=== PATIENT | male | born 1985 | race Caucasian/White ===

== ENCOUNTER 2016-05-27 05:31 | Day surgery (SDC) | payer OTHER ==
[2016-05-20 09:38] LABS: HEMATOCRIT 46.3 % (37.9-51.0); HEMOGLOBIN 15.4 g/dL (13.5-17.0); HGB HCT DIFFERENCE -0.1; MEAN CORPUSCULAR HGB CONC 33.3 g/dL (32.0-36.0); MEAN CORPUSCULAR VOLUME 93 fl (80-97); RED BLOOD COUNT 4.98 10^6/uL (4.35-5.55); RED CELL DISTRIBUTION WIDTH 13.1 % (11.5-14.0); WHITE BLOOD COUNT 7.8 10^3/uL (4.0-10.5)
[2016-05-20 09:40] LABS: APPEARANCE,URINE CLEAR; BILIRUBIN,URINE NEGATIVE (NEGATIVE); GLUCOSE, URINE NEGATIVE (NEGATIVE); KETONES,URINE NEGATIVE (NEGATIVE); LEUKOCYTE ESTERASE,URINE NEGATIVE (NEGATIVE); NITRITE,URINE NEGATIVE (NEGATIVE); PROTEIN,URINE NEGATIVE (NEGATIVE); URINE SPECIFIC GRAVITY 1.017; UROBILINOGEN,URINE NEGATIVE mg/dL (<2.0)
[2016-05-20 09:59] LABS: ALANINE AMINOTRANSFERASE 35 U/L (21-72); ALKALINE PHOSPHATASE 50 U/L (38-126); ANION GAP 14 (5-19); ASPARTATE AMINO TRANSFERASE 21 U/L (17-59); BILIRUBIN,TOTAL 0.8 mg/dL (0.2-1.3); BLOOD UREA NITROGEN 22 mg/dL (7-20); CALCIUM 10.7 mg/dL (8.4-10.2); CARBON DIOXIDE 26 mmol/L (22-30); CHLORIDE 103 mmol/L (98-107); GLUCOSE 73 mg/dL (75-110); POTASSIUM 4.8 mmol/L (3.6-5.0); SODIUM 142.9 mmol/L (137-145); TOTAL PROTEIN 7.5 g/dL (6.3-8.2)
[2016-05-20 13:45] LABS: MAGNESIUM 1.8 mg/dL (1.6-2.3); PHOSPHORUS 3.8 mg/dL (2.5-4.5)
[~2016-05-27 05:31] MED LIST: CEFAZOLIN 2 GM/D5W RTU 2 GM/50 ML RTUPB IV ONE
[2016-05-27] MEDS ORDERED: METHYLENE BLUE INJ/PF 10 MG/1 ML SDV ONE (06:31)
[2016-05-27] MEDS ORDERED: LIDOCAINE 1% INJ-PF (10 MG/ML) 30 ML SDV ONE (06:31)
[2016-05-27] MEDS ORDERED: BUPIVACAINE HCL 0.25% /EPINEPHRINE INJ/PF 30 ML SDV ONE (06:31)
[2016-05-27] MEDS ORDERED: MORPHINE SULFATE 10 MG/ML INJ ONE ×2 (07:08→07:10)
[2016-05-27] MEDS ORDERED: MIDAZOLAM 2 MG/2 ML INJ ONE (07:08)
[2016-05-27] MEDS ORDERED: FENTANYL CITRATE INJ/PF 250 MCG/5 ML AMPULE ONE (07:08)
[2016-05-27] MEDS ORDERED: PROPOFOL INJ 200 MG/20 ML VIAL IV ONE (07:09)
[2016-05-27] MEDS ORDERED: DEXMEDETOMIDINE INJ 80 MCG/20 ML VIAL IV ONE (07:09)
[2016-05-27] MEDS ORDERED: ACETAMINOPHEN 100 ML IV ONE (07:09)
[2016-05-27] MEDS ORDERED: MORPHINE SULFATE 10 MG/ML INJ IV PRN ×3 (08:11→14:02)
[2016-05-27] MEDS ORDERED: FENTANYL CITRATE INJ/PF 100 MCG/2 ML AMPUL IV PRN ×6 (08:11→14:02)
[2016-05-27] MEDS ORDERED: PROMETHAZINE HCL INJ 25 MG/1 ML VIAL IV PRN ×4 (08:11→14:02)
[2016-05-27] MEDS ORDERED: MEPERIDINE HCL/PF INJ 25 MG/1 ML DISP.SYRIN IV PRN ×2 (08:11→14:02)
[2016-05-27] MEDS ORDERED: DIPHENHYDRAMINE HCL 50 MG/ML VIAL IV PRN ×2 (08:11→14:02)
[2016-05-27] MEDS ORDERED: OXYCODONE-ACETAMINOPHEN 5-325 MG TABLET PO PRN ×6 (08:11→14:02)
[2016-05-27] MEDS ORDERED: ROCURONIUM BROMIDE INJ 50 MG/5 ML VIAL IV ONE (09:45)
[2016-05-27] MEDS ORDERED: LIDOCAINE 2% INJ-PF (20 MG/ML) 10 ML AMPUL ONE (09:45)
[2016-05-27] MEDS ORDERED: DEXAMETHASONE SOD PHOSPHATE INJ 4 MG/1 ML VIAL ONE (09:45)
[2016-05-27] MEDS ORDERED: SUCCINYLCHOLINE CHLORIDE INJ 200 MG/10 ML VIAL ONE (09:45)
[2016-05-27] MEDS ORDERED: ONDANSETRON HCL INJ/PF 4 MG/2 ML SDV ONE ×2 (09:45→13:27)
[2016-05-27] MEDS ORDERED: GLYCOPYRROLATE INJ 0.4 MG/2 ML VIAL ONE (09:45)
[2016-05-27] MEDS ORDERED: NEOSTIGMINE METHYLSULFATE 10 MG/10 ML VIAL ONE (09:45)
[2016-05-27] MEDS ORDERED: MINERAL OIL (STERILE) 10 ML VIAL ONE (10:52)
--- NOTE | 2016-05-27 12:35 | Brief Operative Note ---
BRIEF OPERATIVE REPORT DATE OF SURGERY: 05/27/16 TIME OF SURGERY: 07:30 PREOPERATIVE DIAGNOSIS: right UPJ obstruction POSTOPERATIVE DIAGNOSIS: right upj obstruction SURGEON: VASYL ANDREWS 1ST NITRATE OPERATOR: SCOOTER LALA FINDINGS: Right lower pole crossing vessel COMPLICATIONS: none ESTIMATED BLOOD LOSS: 50 TISSUE REMOVED OR ALTERED: none TECHNICAL PROCEDURE: 1. Cystoscopy with right retrograde pyelography/ interpretation. 2. Cystoscopy with right [id number] JJ ureteral stent placement. 3. Right robotic dismembered pyeloplasty
[2016-05-27] MEDS ORDERED: ONDANSETRON HCL INJ/PF 4 MG/2 ML SDV IV PRN (12:45)
--- NOTE | 2016-05-27 13:38 | OPERATIVE REPORT E ---
Operative Report NAME: SCOOTER SANTIAGO : 1985 AGE: 30Y DATE OF SURGERY: 05/27/2016 ROOM: PREOPERATIVE DIAGNOSIS: RIGHT CROSSING VESSEL URETEROPELVIC JUNCTION OBSTRUCTION. POSTOPERATIVE DIAGNOSIS: RIGHT CROSSING VESSEL URETEROPELVIC JUNCTION OBSTRUCTION. OPERATION: 1. Cystourethroscopy with right retrograde pyelography with interpretation. 2. Cystoscopy with right 6-Chadian x 28-cm double-J ureteral stent placement. 3. Right robotic dismembered pyeloplasty. SURGEON: Luis Manuel Nix M.D. SAFETY ASSISTANT: Scooter Gonzalez DO ANESTHESIA: General endotracheal. ESTIMATED BLOOD LOSS: 50. INTRAVENOUS FLUIDS: 3 liters of Ringer's lactate. DRAINS, TUBES AND LINES: A 14-Chadian Reece catheter to gravity and a #15 AURELIO drain to bulb suction, a right 6-Chadian x 28-cm double-J ureteral stent. TISSUE REMOVED OR ALTERED: None. COMPLICATIONS: None. CONDITION: Stable. 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 Imaging revealed a chronic UPJ obstruction. He had a MAG3 scan showing delayed excretion on that right side and CT imaging which showed a crossing vessel on the lower pole. He was apprised of the risks and benefits of surgery and elected for the procedures to came to [place] for today. DESCRIPTION OF SURGERY: The patient was identified in the preoperative holding area. The surgery with all of the attendant risks and benefits were again described in detail to the patient and he confirmed his consent to proceed. After being marked on the right side, he was given Ancef 2 g and was brought to the operating room. He had sequential compression devices placed. These were cycled prior to general endotracheal anesthesia. He was then repositioned in the dorsal low lithotomy position where he was prepped and draped in the usual sterile fashion. We performed a surgical time-out and all were in agreement and then we started the case. We began by placing a 21-Chadian rigid cystoscope in transurethrally. The urethra, prostate and bladder were surveyed and no lesions or abnormalities were found. We intubated the left ureteral orifice with an open-ended catheter and performed retrograde pyelogram. This showed a kinked ureter at the UPJ consistent with extrinsic UPJ obstruction from crossing lower pole vessel and with proximal hydronephrosis. We then placed a 6-Chadian x 28-cm double-J stent through the scope, confirmed the coil in the bladder visually and confirmed the coil in the renal pelvis fluoroscopically. We then removed the scope and placed a 14-Chadian Reece catheter sterilely. The patient was then undraped and repositioned in the lateral decubitus position with the right side up. He was positioned over a break in the bed. Kidney rest was elevated. He was secured in 3 points and pressure points were all padded extensively and his left arm was on the arm board and the right arm was secured over pillows. We tilted the bed to confirm that he was secure. Once this was deemed the case, we again prepped and draped and began the next portion of the case. We placed the Veress needle just superior to the umbilicus and performed a saline drop test. We then insufflated on high pressure with good insufflation and opening pressure of 7. We then placed our 12 mm port bluntly where the Veress needle was placed after incising with the scalpel to open this down to the fascia. Once this was in place, we put the insufflation back onto that port and put the scope in to visualize. There were no adhesions seen. We then began placing our additional ports. We placed our 2 robotic ports approximately 8 cm superior to the supraumbilical port and 8 cm inferolateral for the left robotic arm. We marked these and placed 0.25% Marcaine plain in there and then placed each of the robotic trocars. We then placed the recruiting assistant port in the midline, proximal triangulated approximately 8 cm inferior to the supraumbilical port and placed this in under direct vision also. Once this was done, we inspected the abdomen. There was no bleeding and no concerns. Then we brought the robot in and docked it. With the robot in place, we then reflected the colon along the white line pulling it medially. We were then able to elevate the ureter which was easily visualized after it had been distended and traced back up towards the renal pelvis. We opened Gerota fascia and renal attachments superiorly. At this point, we did find the liver to be somewhat flopping in the work area, so we placed a 5 mm port in the subxiphoid area to help retract the liver superiorly. We further then dissected the ureter to where we could identify the crossing vessel and we took down all the dense adhesions from that and were able to isolate. There was a crossing artery and vein that were crossing in front of the ureter, so we were able to isolate that entirely and then we were able to fully mobilize the renal pelvis as well. We pulled the gonadal vein medially and kept this out of the way of the dissection. Once we had adequate mobilization, we placed a Lee needle with a 3-0 Vicryl on it through the abdominal wall to elevate the renal pelvis and we elevated this up and secured it to the skin and then we divided the UPJ right at UPJ obstruction with scissors, with care to avoid injuring the stent. We then spatulated the ureter laterally and we found that we had a widely patent and open UPJ from that incision. We then turned our attention to sewing the anastomosis. We brought in 4-0 Vicryl stitches and secured the apex and then we ran the posterior wall of the anastomosis with running 4-0 Vicryl then we tied it. We placed the stent into the renal pelvis and then closed the anterior aspect with 2 separate running 4-0 Vicryl sutures. Once this was done, we were satisfied we had a good watertight closure. We irrigated and were satisfied that hemostasis was adequate. We then placed a AURELIO drain through our lower robotic port and then we undocked the robot and moved it out of the way. We put the scope back in and visualized and we felt hemostasis was adequate with 5 mm of pressure and then we removed all the ports. We used an 0 Vicryl on a UR6 needle to close the fascia of the 12 mm ports and then we closed the deep dermal layer with Vicryl and then closed the skin with running 4-0 Monocryl in subcuticular stitches. We then cleaned the patient and applied skin glue. We secured the drain in place and placed a drain sponge over it. The awoke from anesthesia. We secured the Reece catheter to his leg and he was transferred to the PACU in stable condition. The plan is for recovery per PACU protocol and he will be discharged later today to the [facility] for further recovery. We will leave the stent in place for about 6 weeks. We will take the Reece catheter out tomorrow and the drain out tomorrow as well. DICTATING PHYSICIAN: Luis Manuel Nix MD [id number] PHY#: [id number] ID: [id number] JOB#: [id number] ACCT: [id number] cc:Luis Manuel Nix M.D. >
[2016-05-27] MEDS ORDERED: ONDANSETRON HCL INJ/PF 4 MG/2 ML SDV IV ONE (13:45)
[2016-05-27 17:22] VITALS: BP 124/83
== END 2016-05-27 15:40 ==
LOC: OROUT 05:31
PROVIDERS: ATTEND Urology
PROC: 0TQ34ZZ Repair Right Kidney Pelvis, Percutaneous Endoscopic Approach (ICD-10-PCS; 2016-05-27)
PROC: 8E0W4CZ Robotic Assisted Procedure of Trunk Region, Percutaneous Endoscopic Approach (ICD-10-PCS; 2016-05-27)
PROC: 0T768DZ Dilation of Right Ureter with Intraluminal Device, Via Natural or Artificial Opening Endoscopic (ICD-10-PCS; principal; 2016-05-27 07:30)
DX: N13.2 Hydronephrosis with renal and ureteral calculous obstruction (principal); F17.210 Nicotine dependence, cigarettes, uncomplicated; J45.909 Unspecified asthma, uncomplicated; I10 Essential (primary) hypertension; Z79.899 Other long term (current) drug therapy
CPT/HCPCS: 50544; 52332; S2900; 36415; 74420; 80053; 81001; 83735; 84100; 85027; 862; 86850; 86900; 86901; 87086; J0131; J0330; J0690; J1100; J2250; J2270; J2405; J2704; J3010; J3490; Q9967; Q9968